=== PATIENT | female | born 1980 | race Caucasian/White ===

== ENCOUNTER 2017-02-16 22:18 | Emergency (ER) | payer OTHER | END 2017-02-16 23:38 | disposition left against medical advice (07) | LOC: ER 22:18 | DX: Z53.21 Procedure and treatment not carried out due to patient leaving prior to being seen by health care provider (principal) | CPT/HCPCS: 99211 ==

== ENCOUNTER 2017-02-18 23:44 | Emergency (ER) | payer MEDICARE | END 2017-02-19 01:18 | disposition home or self-care (01) | LOC: ER 23:44 | DX: L03.116 Cellulitis of left lower limb (principal); Z86.14 Personal history of Methicillin resistant Staphylococcus aureus infection; Z86.19 Personal history of other infectious and parasitic diseases; F17.210 Nicotine dependence, cigarettes, uncomplicated; Z88.0 Allergy status to penicillin; Z79.899 Other long term (current) drug therapy | CPT/HCPCS: 73620; 99283-25 ==